=== PATIENT | male | born 1995 | race American Indian/Alaskan Native ===

== ENCOUNTER 2019-05-02 14:55 | Emergency (ER) | payer SELFPAY ==
[2019-05-02 15:01] VITALS: BP 144/79
--- NOTE | 2019-05-02 15:06 | Emergency Department Report ---
Blank Doc - Documentation Documentation: 24-year-old male that presents with syncopal episode last night and now has ri ght facial pain due to fall and arm. Deneis any neck pain. Denies any other complaints or pain. This initial assessment/diagnostic orders/clinical plan/treatment(s) is/are subject to change based on patient's health status, clinical progression and re- assessment by fellow clinical providers in the ED. Further treatment and workup at subsequent clinical providers discretion. Patient/guardians urged not to elope from the ED as their condition may be serious if not clinically assessed and managed. Initial orders include: 1- Patient sent to [facility] for further evaluation and treatment 2- labs 3 EKG 4- CT head/facial bone
--- NOTE | 2019-05-02 15:35 | Emergency Department Report ---
ED Syncope HPI - General Chief Complaint: Pain General Stated Complaint: RT SIDE PAIN EXTREME Time Seen by Provider: 05/02/19 15:04 Source: patient, RN notes reviewed Exam Limitations: no limitations - History of Present Illness Initial Comments: This is a 24-year-old -[place] male who presents to the emergency room with right sided body. Patient states he had a syncopal episode while walking home from [facility] around 1999 last night. Patient states he was smoking marijuana on the walk home and started feeling lightheaded. He remember waking up faced down on the sidewalk. States syncopal episode was unwitnessed. He reports pain to right side of face and states teeth feel loose. He report pain in right ankle and noticed bruising to chin and left knee. Timing/Prior Episodes: no prior history Precipitating Factors: Positive: lightheadedness Context: standing Episode Description: He felt lightheaded while walking home. He woke up on the side walk Loss of Consciousness: brief (seconds) Current Symptoms: other (right sided facial pain and right sided body aches) - Related Data Allergies/Adverse Reactions: Allergies No Known Allergies Allergy (Verified 05/02/19 14:56) Home Medications: Ambulatory Orders Naproxen [Naprosyn] 500 mg PO BID #20 tablet 05/02/19 ED Review of Systems ROS: Stated complaint: RT SIDE PAIN EXTREME Other details as noted in HPI Constitutional: denies: chills, fever Respiratory: denies: cough, shortness of breath, wheezing Cardiovascular: denies: chest pain, palpitations Gastrointestinal: denies: abdominal pain, nausea, diarrhea Musculoskeletal: arthralgia (right sided facial pain and right sided body aches). denies: back pain, joint swelling Skin: lesions (abrasion to chin and left knee). denies: rash Neurological: denies: headache, weakness, paresthesias Psychiatric: denies: anxiety, depression ED Past Medical Hx - Past Medical History Previous Medical History?: No - Surgical History Past Surgical History?: No - Social History Smoking Status: Current Every Day Smoker Substance Use Type: Marijuana - Medications Home Medications: Home Medications Medication Instructions Recorded Confirmed Last Taken Type Naproxen [Naprosyn] 500 mg PO BID #20 tablet 05/02/19 Unknown Rx ED Physical Exam - General Limitations: No Limitations General appearance: alert, in no apparent distress - ENT ENT exam: Present: normal orophraynx, mucous membranes moist, TM's normal bilaterally, normal external ear exam - Neck Neck exam: Present: normal inspection - Respiratory Respiratory exam: Present: normal lung sounds bilaterally. Absent: respiratory distress - Cardiovascular Cardiovascular Exam: Present: regular rate, normal rhythm. Absent: systolic murmur, diastolic murmur, rubs, gallop - GI/Abdominal GI/Abdominal exam: Present: soft, normal bowel sounds - Back Exam Back exam: Present: normal inspection - Neurological Exam Neurological exam: Present: alert, oriented X3, normal gait - Expanded Neurological Exam Expanded Patient oriented to: Present: person, place, time Speech: Present: fluid speech Cranial nerves: EOM's Intact: Normal, Gag Reflex: Normal, Tongue Deviation: Normal, Nystagmus: Normal, Facial Sensation: Normal, Facial Palsy with Forehead Movement: Normal, Facial Palsy without Forehead Movement: Normal Cerebellar function: Finger to Nose: Normal, Heel to Pearson: Normal, Romberg: Normal Upper motor neuron: Tim Neglect: Normal, Pronator Drift: Normal Sensory exam: Upper Extremity Light Touch: Normal, Upper Extremity Pin Prick: Normal, Upper Extremity Temperature: Normal, UE 2 Point Discrimination: Normal Motor strength exam: RUE: 5, LUE: 5, RLE: 5, LLE: 5 Best Eye Response ([place]): (4) open spontaneously Best Motor Response ([place]): (6) obeys commands Best Verbal Response ([place]): (5) oriented [place] Total: 15 - Psychiatric Psychiatric exam: Present: normal affect, normal mood - Skin Skin exam: Present: warm, dry, intact, normal color, abrasion (1 cm abrasion to chin, tenderness, no swelling or active discharge, 2 cm abrasion to left knee, tenderness, no swelling or dischrage). Absent: rash ED Course Vital Signs 05/02/19 05/02/19 14:59 15:21 Temperature 98.3 F Pulse Rate 88 Respiratory 18 16 Rate Blood Pressure 144/79 O2 Sat by Pulse 100 Oximetry ED Medical Decision Making - Lab Data Result diagrams: 05/02/19 15:30 05/02/19 15:30 Lab Results 05/02/19 05/02/19 05/02/19 Range/Units 15:30 15:30 15:30 WBC 7.7 (4.5-11.0) K/mm3 RBC 5.30 H (3.65-5.03) M/mm3 Hgb 15.7 H (11.8-15.2) gm/dl Hct 47.3 H (35.5-45.6) % MCV 89 (84-94) fl MCH 30 (28-32) pg MCHC 33 (32-34) % RDW 13.6 (13.2-15.2) % Plt Count 228 (140-440) K/mm3 Lymph % (Auto) 12.5 L (13.4-35.0) % [place]win % (Auto) 9.1 H (0.0-7.3) % Eos % (Auto) 0.2 (0.0-4.3) % Baso % (Auto) 0.3 (0.0-1.8) % Lymph # 1.0 L (1.2-5.4) K/mm3 Irwin # 0.7 (0.0-0.8) K/mm3 Eos # 0.0 (0.0-0.4) K/mm3 Baso # 0.0 (0.0-0.1) K/mm3 Seg Neutrophils % 77.9 H (40.0-70.0) % Seg Neutrophils # 6.0 (1.8-7.7) K/mm3 Sodium 143 (137-145) mmol/L Potassium 4.5 (3.6-5.0) mmol/L Chloride 103.0 (98-107) mmol/L Carbon Dioxide 28 (22-30) mmol/L Anion Gap 17 mmol/L BUN 15 (9-20) mg/dL Creatinine 1.3 (0.8-1.5) mg/dL Estimated GFR > 60 ml/min BUN/Creatinine Ratio 12 % Glucose 110 H (75-100) mg/dL Calcium 9.7 (8.4-10.2) mg/dL Total Bilirubin 1.80 H (0.1-1.2) mg/dL AST 17 (5-40) units/L ALT 14 (7-56) units/L Alkaline Phosphatase 86 (35-129) units/L Troponin T < 0.010 (0.00-0.029) ng/mL Total Protein 7.7 (6.3-8.2) g/dL Albumin 4.7 (3.9-5) g/dL Albumin/Globulin Ratio 1.6 % Plasma/Serum Alcohol < 0.01 (0-0.07) % - EKG Data -: No EKG Interpreted by Me (EKG interpreted by attending) EKG shows normal: sinus rhythm Rate: normal - Radiology Data Radiology results: report reviewed CT HEAD WITHOUT CONTRAST INDICATION : Syncope. TECHNIQUE: Axial imaging performed from the skull apex through the skull base without the use of contrast. Sagittal and coronal reformatted images. All CT scans at this location are performed using CT dose reduction for ALARA by means of automated exposure control. COMPARISON: None FINDINGS: Parenchyma: No acute intracranial hemorrhage or parenchymal abnormality. Ventricles: Ventricles are normal in size and appear symmetric. Bones: No acute osseous abnormality. Sinuses: Sinuses and mastoid air cells are clear. Soft tissues: Soft tissues including the orbits appear normal. IMPRESSION: No acute abnormality. CT FACIAL BONES WITHOUT CONTRAST INDICATION : MAIN: syncope . TECHNIQUE: Axial imaging performed through the face with reconstructed images also reviewed. Sagittal and coronal reformatted images. All CT scans at this location are performed using CT dose reduction for ALARA by means of automated exposure control. COMPARISON: None FINDINGS: No evidence for facial fracture or bony destruction. The sinuses are well-aerated. Some centimeter mucous retention cysts or polyps are noted in the left maxillary sinus and right sphenoid sinus. The orbital cavities are intact. The mandible and zygomas are intact. The skull base and visualized brain are within normal limits. IMPRESSION: No acute abnormality. - Medical Decision Making Patient was examined by me. Patient is nontoxic appearing and stable. Vitals are normal. Obtained labs, and EKG, and CT of head and facial bones. All labs are unremarkable. EKG interpreted by attending, normal sinus rhythm, no STEMI elevation, CT of head and facial bones are without acute findings. Patient informed of results. Abrasions cleaned with normal saline. Instructed to take Tylenol or ibuprofen for pain. Apply triple antibiotic ointment to wounds. Follow up with PCP or return to the ER with worsening symptoms. Patient discharged home in stable condition. Critical care attestation.: If time is entered above; I have spent that time in minutes in the direct care of this critically ill patient, excluding procedure time. ED Disposition Clinical Impression: Abrasion of chin without infection Episode of syncope Qualifiers: Syncope type: vasovagal syncope Qualified Code(s): R55 - Syncope and collapse Abrasion of knee, left Qualifiers: Encounter type: initial encounter Qualified Code(s): S80.212A - Abrasion, left knee, initial encounter Disposition: TO HOME OR SELFCARE Is pt being admited?: No Condition: Stable Instructions: Syncope (ED), Abrasion (ED) Prescriptions: Naproxen [Naprosyn] 500 mg PO BID #20 tablet Referrals: [facility] [Outside] - 3-5 Days [facility] [Outside] - 3-5 Days [facility] [Outside] - 3-5 Days Forms: Work/School Release Form(ED) Time of Disposition: 16:40
[2019-05-02 16:03] LABS: Basophils % (Auto) 0.3 % (0.0-1.8); Eosinophils % (Auto) 0.2 % (0.0-4.3); Hematocrit 47.3 % (35.5-45.6); Hemoglobin 15.7 gm/dl (11.8-15.2); Lymphocytes % (Auto) 12.5 % (13.4-35.0); Mean Corpuscular HGB Conc 33 % (32-34); Mean Corpuscular Volume 89 fl (84-94); Monocytes # (Auto) 0.7 K/mm3 (0.0-0.8); Monocytes % (Auto) 9.1 % (0.0-7.3); Platelet Count 228 K/mm3 (140-440); Red Cell Distribution Width 13.6 % (13.2-15.2)
[2019-05-02 16:13] LABS: Alanine Aminotransferase 14 units/L (7-56); Albumin 4.7 g/dL (3.9-5); BUN/Creatinine Ratio 12; Blood Urea Nitrogen 15 mg/dL (9-20); Calcium 9.7 mg/dL (8.4-10.2); Hemolysis Index 10
--- NOTE | 2019-05-02 16:19 | Cat Scan Report ---
CT HEAD WITHOUT CONTRAST INDICATION : Syncope. TECHNIQUE: Axial imaging performed from the skull apex through the skull base without the use of con trast. Sagittal and coronal reformatted images. All CT scans at this location are performed using C T dose reduction for ALARA by means of automated exposure control. COMPARISON: None FINDINGS: Parenchyma: No acute intracranial hemorrhage or parenchymal abnormality. Ventricles: Ventricles are normal in size and appear symmetric. Bones: No acute osseous abnormality. Sinuses: Sinuses and mastoid air cells are clear. Soft tissues: Soft tissues including the orbits appear normal. IMPRESSION: No acute abnormality. Signer Name: Triston Kirkpatrick Jr, MD Signed: 05/02/2019 4:15 PM Workstation Name: [id number]
--- NOTE | 2019-05-02 16:29 | Cat Scan Report ---
CT FACIAL BONES WITHOUT CONTRAST INDICATION : MAIN: syncope . TECHNIQUE: Axial imaging performed through the face with reconstructed images also reviewed. Sagitta l and coronal reformatted images. All CT scans at this location are performed using CT dose reduction for ALARA by means of automated exposure control. COMPARISON: None FINDINGS: No evidence for facial fracture or bony destruction. The sinuses are well-aerated. Some ce ntimeter mucous retention cysts or polyps are noted in the left maxillary sinus and right sphenoid si nus. The orbital cavities are intact. The mandible and zygomas are intact. The skull base and visuali zed brain are within normal limits. IMPRESSION: No acute abnormality. Signer Name: Triston Kirkpatrick Jr, MD Signed: 05/02/2019 4:25 PM Workstation Name: [id number]
== END 2019-05-02 16:52 | disposition home or self-care (01) ==
LOC: ED 14:55
DX: S00.81XA Abrasion of other part of head, initial encounter (principal); S80.212A Abrasion, left knee, initial encounter; R55 Syncope and collapse; F17.200 Nicotine dependence, unspecified, uncomplicated; Z79.899 Other long term (current) drug therapy; X58.XXXA Exposure to other specified factors, initial encounter; Y93.89 Activity, other specified; Y92.89 Other specified places as the place of occurrence of the external cause; Y99.8 Other external cause status
CPT/HCPCS: 36415; 70450; 70486; 80053; 80320; 84484; 85025; 93005; 93010; G0480